=== PATIENT | female | born 1960 | race African-American/Black ===

== ENCOUNTER 2017-03-26 08:05 | Inpatient (IN) | payer OTHER ==
[~2017-03-26] VITALS: Ht 170.2 cm; Wt 124.7 kg
[2017-03-26] MEDS ORDERED: GLIP5TAB12 PO (08:10)
[2017-03-26 11:18] LABS: BASOPHILS % 0.3 % (0.0-2.0); EOSINOPHILS % 1.1 % (0.0-5.0); HEMATOCRIT. 36.6 % (36.0-48.0); HEMOGLOBIN. 11.7 g/dL (12.0-16.0); LYMPHOCYTES % 13.7 % (20.0-50.0); MEAN CORPUSCULAR HEMOGLOBIN 25.9 pg (28.0-32.0); MEAN CORPUSCULAR VOLUME 81.2 fL (81.0-99.0); MEAN PLATELET VOLUME 9.6 fl (7.4-10.4); MONOCYTES % 5.6 % (2.0-8.0); NEUTROPHILS % 79.3 % (40.0-76.0); PLATELET 226 x1000/uL (130-400); RED BLOOD CELL COUNT 4.51 mill/uL (4.2-5.4); RED CELL DISTRIBUTION WIDTH 14.8 % (11.6-14.6)
[2017-03-26 11:22] LABS: CHLORIDE 104 mEq/L (98-107)
[2017-03-26 11:27] LABS: CARBON DIOXIDE 31 mEq/L (21-32); INR 1.1; PROTHROMBIN TIME 11.1 sec (9.4-11.6)
[2017-03-26] MEDS ORDERED: PIPERACILLIN/TAZ 3.375G PREMIX 50 ML IV ONE (13:00)
[2017-03-26] MEDS ORDERED: VANCOMYCIN 1 G PREMIX 200 ML IV ONE (13:00)
[2017-03-26] MEDS ORDERED: MAGNESIUM/ALUMINUM HYDROXIDE/SIMETHICONE 30ML UDC PO PRN (17:30)
[2017-03-26] MEDS ORDERED: HYDROCODONE/ACETAMINOPHEN 5/325MG TABLET PO PRN (17:30)
[2017-03-26] MEDS ORDERED: VANCOMYCIN 1 G PREMIX 200 ML IV SCH (17:30)
[2017-03-26] MEDS ORDERED: CLONIDINE 0.1MG TABLET PO PRN (17:30)
[2017-03-26] MEDS ORDERED: MORPHINE SULFATE 4 MG/ML CPJ (NOT FOR IM USE) IV PRN (17:30)
[2017-03-26] MEDS ORDERED: ONDANSETRON HCL 4MG/2ML VIAL IV PRN (17:30)
[2017-03-26 20:00] VITALS: BP_SYST 100; BP_SYST 99; BP_DIAS 59
[2017-03-26] MEDS ORDERED: VANCOMYCIN 1 G PREMIX 200 ML IV NR (20:00)
[2017-03-26] MEDS: PIPERACILLIN/TAZ 3.375G PREMIX 50 ML IV SCH (21:45)
[2017-03-26] MEDS: ENOXAPARIN 40MG/0.4ML SYR SUBCUT SCH (21:46)
[2017-03-26] MEDS ORDERED: DEXTROSE 50% WATER 50ML SYRINGE IV PRN (22:15)
[2017-03-27] VITALS: BP 100/51
[2017-03-27 00:33] LABS: CHLORIDE 106 mEq/L (98-107)
[2017-03-27 00:39] LABS: CARBON DIOXIDE 28 mEq/L (21-32)
[2017-03-27] MEDS: PIPERACILLIN/TAZ 3.375G PREMIX 50 ML IV SCH ×3 (03:38→13:02)
[2017-03-27 04:00] VITALS: BP 103/61
[2017-03-27] MEDS: BLOOD SUGAR DIAGNOSTIC STRIP TEST SCH ×3 (06:38→16:30)
[2017-03-27 06:39] LABS: BASOPHILS % 0.5 % (0.0-2.0); EOSINOPHILS % 3.5 % (0.0-5.0); HEMOGLOBIN. 10.5 g/dL (12.0-16.0); LYMPHOCYTES % 20.6 % (20.0-50.0); MEAN CORPUSCULAR HEMOGLOBIN 26.5 pg (28.0-32.0); MEAN CORPUSCULAR VOLUME 80.9 fL (81.0-99.0); MEAN PLATELET VOLUME 9.7 fl (7.4-10.4); MONOCYTES % 8.2 % (2.0-8.0); NEUTROPHILS % 67.2 % (40.0-76.0); PLATELET 206 x1000/uL (130-400); RED BLOOD CELL COUNT 3.95 mill/uL (4.2-5.4); RED CELL DISTRIBUTION WIDTH 14.4 % (11.6-14.6)
[2017-03-27] MEDS: INSULIN LISPRO 100 UNITS/ML SUBCUT SCH ×3 (07:50→17:15)
[2017-03-27 08:00] VITALS: BP 96/47
[2017-03-27] MEDS ORDERED: VANCOMYCIN 1250MG in DEXTROSE 5% WATER 250ML IV SCH (08:00)
[2017-03-27] MEDS ORDERED: GABA-529 PO (08:24)
[2017-03-27] MEDS ORDERED: MELO-106 PO (08:24)
[2017-03-27] MEDS ORDERED: MULT-1146 PO (08:24)
[2017-03-27] MEDS ORDERED: HYDR-523 PO (08:24)
[2017-03-27] MEDS ORDERED: DOCU-150 PO (08:24)
[2017-03-27] MEDS ORDERED: CEPHALEXIN (08:24)
[2017-03-27] MEDS: ENOXAPARIN 40MG/0.4ML SYR SUBCUT SCH (09:08)
[2017-03-27] MEDS ORDERED: POTASSIUM CHLORIDE 20MEQ TABLET SR PO SCH (11:00)
[2017-03-27 11:01] LABS: CLARITY URINE CLOUDY (CLEAR); COLOR URINE YELLOW (YELLOW); GLUCOSE URINE NEGATIVE (NEGATIVE); KETONES URINE NEGATIVE (NEGATIVE); LEUKOCYTE ESTERASE URINE 3+ (NEGATIVE); NITRITE URINE NEGATIVE (NEGATIVE); OCCULT BLOOD URINE 1+ (NEGATIVE); PH URINE 5.5 (4.5-8.0); PROTEIN URINE NEGATIVE (NEGATIVE); SPECIFIC GRAVITY URINE 1.022 (1.005-1.030); UROBILINOGEN URINE 0.2 E.U./dL (0.2-1.0)
[2017-03-27 11:39] LABS: *AMPHETAMINES SCREEN URINE NEGATIVE (NEGATIVE); *BARBITURATES SCREEN URINE NEGATIVE (NEGATIVE); *BENZODIAZEPINES SCREEN URINE NEGATIVE (NEGATIVE); *COCAINE SCREEN URINE NEGATIVE (NEGATIVE); CANNABINOID URINE SCREEN NEGATIVE (NEGATIVE); METHADONE URINE SCREEN NEGATIVE (NEGATIVE); OPIATES URINE SCREEN NEGATIVE (NEGATIVE); PHENCYCLIDINE URINE SCREEN NEGATIVE (NEGATIVE)
[2017-03-27 12:00] VITALS: BP 114/69
[2017-03-27] MEDS: GABAPENTIN 100MG CAPSULE PO SCH ×2 (13:02→16:30)
[2017-03-27 16:00] VITALS: BP 119/67
[2017-03-27] MEDS ORDERED: GLIPIZIDE 10MG TABLET PO SCH (17:20)
[2017-03-27 17:21] VITALS: BP 119/67
[2017-03-28] MEDS ORDERED: DOCUSATE SODIUM 250MG CAPSULE PO SCH (09:00)
== END 2017-03-27 19:25 | disposition short-term general hospital (02) | DRG 638 ==
LOC: ER 08:15 → 6EST 14:03 → EDBEDREQSVC 14:06 → EDBEDREQ 14:06 → CANRESERV 16:14 → ENRESERV 16:14 → SUPCPDRO 17:30
PROVIDERS: ADMIT Internal Medicine Nephrology; ATTEND Internal Medicine Nephrology
DX: E11.69 Type 2 diabetes mellitus with other specified complication (principal); L03.115 Cellulitis of right lower limb; M86.10 Other acute osteomyelitis, unspecified site; E11.40 Type 2 diabetes mellitus with diabetic neuropathy, unspecified; E11.51 Type 2 diabetes mellitus with diabetic peripheral angiopathy without gangrene; L03.116 Cellulitis of left lower limb; W01.0XXA Fall on same level from slipping, tripping and stumbling without subsequent striking against object, initial encounter; E87.6 Hypokalemia; I10 Essential (primary) hypertension; M20.40 Other hammer toe(s) (acquired), unspecified foot; D64.9 Anemia, unspecified; Y92.89 Other specified places as the place of occurrence of the external cause; Y93.89 Activity, other specified; Y99.8 Other external cause status
CPT/HCPCS: 36415; 71010; 73562; 73630; 80048; 80053; 80305; 81001; 82962; 83605; 83690; 85025; 85610; 87040; 87070; 87077; 87186; 87205; 93005; 93970; 96365; 96366; 96368; 99285; J1650; J1815; J2543; J3370; J7040; J7060